=== PATIENT | male | born 1985 | race Caucasian/White ===

== ENCOUNTER 2024-04-12 10:27 | Inpatient (IN) | payer SELFPAY ==
[2024-04-12] MEDS ORDERED: ONDANSETRON 4 MG/2 ML VIAL ONE (10:55)
[2024-04-12] MEDS ORDERED: MORPHINE 4 MG/ML SYR ONE (10:55)
[2024-04-12] MEDS ORDERED: NA CHLORIDE 0.9% 1,000 ML ONE ×2 (10:56→12:22)
[2024-04-12 11:07] LABS: Absolute Basophils 0.1 K/uL (0-0.5); Absolute Eosinophils 0.1 K/uL (0-0.5); Absolute Lymphocytes (CBC) 1.6 K/uL (0.7-4.9); Absolute Monocytes 1.5 K/uL (0.1-1.3); Absolute Neutrophil 12.4 K/uL (1.8-8.0); Basophils % 0.3 % (0-1.3); Eosinophils % 0.4 % (0-4.4); Hemoglobin 15.5 g/dL (13.6-17.9); Lymphocytes % 10.1 % (15.3-44.8); MCH 30.9 pg (27.0-35.0); MCHC 33.6 g/dL (32.0-36.0); MCV 91.8 fL (80-100); MPV 7.6 fL (7.6-11.3); Monocytes % 9.3 % (3.3-12.3); Neutrophils % 79.9 % (41.7-73.7); Nucleated Red Blood Cells % 0.1 % (0-0); Platelets 238 thou/uL (152-406)
[2024-04-12 11:22] LABS: Albumin 2.8 g/dL (3.4-5.0); Albumin/Globulin Ratio 0.6 (1.1-1.8); Anion Gap 8.1 mEq/L (5.0-15.0); Potassium 4.1 mEq/L (3.5-5.1); Protein, Total 7.8 g/dL (6.4-8.2)
[2024-04-12] MEDS ORDERED: CIPROFLOXACIN 400mg IV 400 MG/200 ML BAG IV ONE (11:55)
[2024-04-12] MEDS ORDERED: METRONIDAZOLE 500mg IVPB 500 MG/100 ML BAG IV ONE (11:56)
[2024-04-12 11:57] LABS: Specific Gravity > 1.030 (1.005-1.030); Sqamous Epithelial None Seen /HPF (None Seen); Urine Bacteria None Seen /HPF (<20); Urine Bilirubin NEGATIVE (Negative); Urine Blood Trace (Negative); Urine Clarity Clear (Clear); Urine Color Light-Yellow (Yellow); Urine Culture Reflex Order NOT NEEDED; Urine Glucose NEGATIVE (Negative); Urine Ketones TRACE (Negative); Urine Microscopic Reflex YN ORDER UMIC; Urine Nitrite NEGATIVE (Negative); Urine Protein TRACE (Negative); Urine Urobilinogen Normal (Normal); Urine WBC <5 /HPF (<5); Urine pH 6.5 (5.0-7.0)
--- NOTE | 2024-04-12 12:14 | RAD REPORT ---
EXAM DESCRIPTION: CT - Abdomen Pelvis W Contrast - 04/12/2024 11:25 am CLINICAL HISTORY: ABD PAIN COMPARISON: No comparisons TECHNIQUE: Thin cut axial CT imaging of the abdomen and pelvis was performed following intravenous a dministration of iodinated contrast. Multiplanar reformats were generated and reviewed. All CT scans are performed using dose optimization technique as appropriate and may include automated exposure control or mA/KV adjustment according to patient size. FINDINGS: No suspicious findings in the lung bases. The liver shows diffuse parenchymal hypoattenuation, suggesting steatosis. Adrenal glands, spleen, an d pancreas show no suspicious findings. Gallbladder and biliary tree are also without suspicious find ing. Symmetric renal function is seen with no hydronephrosis or suspicious renal mass. At least 2 punctate radiodense foci along the left renal pyramids, not exceeding 3 mm. No dilated bowel loops. Focal bowel wall thickening along the proximal sigmoid colon. An inflamed div erticulum is present along the posterior wall, projecting inferiorly. Adjacent extraluminal gas with adjacent fat stranding. Extraluminal gas extends post stroke superiorly along the pelvic sidewall, fo r a distance of approximately 6.2 cm. Trace fluid along the left pelvic sidewall. No discrete collect ions. No free air, free fluid or inflammatory stranding. No hernia, mass or bulky lymphadenopathy. Th e urinary bladder is without significant finding. No suspicious bony findings. IMPRESSION: Sequelae of proximal sigmoid diverticulitis with perforation, and poor localization of t he extraluminal gas, which extends cranially along the left pelvic sidewall. No discrete fluid collec tions. Punctate foci along the tips of the left renal pyramids, may represent small nonobstructing calculi v ersus from the calcifications. Diffuse hepatic steatosis. The findings were communicated to Ga Vasquez on 04/12/2024 at 12:04 hours.
--- NOTE | 2024-04-12 12:19 | EDPHYS ---
Physician Documentation [facility] Name: Eddie Sandhu Age: 38 yrs Sex: Male : 1985 Arrival Date: 04/12/2024 Time: 10:27 Bed 14 Private MD: ED Physician Ga Vasquez HPI: 04/12 10:48 This 38 yrs old Male presents to ER via Ambulatory with complaints of slade Abdominal Injury - on 04/08/24, Fever. 10:48 Trauma demographics: County: The injury occurred in [place]. Mechanism of injury: slade Fall: the patient fell from a standing position. Associated injuries: The patient sustained injury to the abdomen, specifically the suprapubic area, right lower quadrant and left lower quadrant. The patient has not experienced similar symptoms in the past. Historical: - Allergies: 10:39 No Known Allergies; ko1 - Home Meds: 10:39 None [Active]; ko1 - PMHx: 10:39 None; ko1 - PSHx: 10:39 None; ko1 - Immunization history:: Adult Immunizations up to date. - Infectious Disease History:: Denies. - Social history:: Smoking status: Patient denies any tobacco usage or history of. ROS: 10:49 Constitutional: Negative for fever, chills, and weight loss, Eyes: Negative for injury, slade pain, redness, and discharge, ENT: Negative for injury, pain, and discharge, Neck: Negative for injury, pain, and swelling, Cardiovascular: Negative for chest pain, palpitations, and edema, Respiratory: Negative for shortness of breath, cough, wheezing, and pleuritic chest pain, Back: Negative for injury and pain, : Negative for injury, bleeding, discharge, and swelling, MS/Extremity: Negative for injury and deformity, Skin: Negative for injury, rash, and discoloration, Neuro: Negative for headache, weakness, numbness, tingling, and seizure, Psych: Negative for depression, anxiety, suicide ideation, homicidal ideation, and hallucinations, Allergy/Immunology: Negative for hives, rash, and allergies, Endocrine: Negative for neck swelling, polydipsia, polyuria, polyphagia, and marked weight changes, Hematologic/Lymphatic: Negative for swollen nodes, abnormal bleeding, and unusual bruising, 10:49 Abdomen/GI: Positive for abdominal pain, abdominal cramps, abdominal distension, of the suprapubic area, right lower quadrant and left lower quadrant, Exam: 10:49 Constitutional: This is a well developed, well nourished patient who is awake, alert, slade and in no acute distress. Head/Face: Normocephalic, atraumatic. Eyes: Pupils equal round and reactive to light, extra-ocular motions intact. Lids and lashes normal. Conjunctiva and sclera are non-icteric and not injected. Cornea within normal limits. Periorbital areas with no swelling, redness, or edema. ENT: Nares patent. No nasal discharge, no septal abnormalities noted. Tympanic membranes are normal and external auditory canals are clear. Oropharynx with no redness, swelling, or masses, exudates, or evidence of obstruction, uvula midline. Mucous membranes moist. Neck: Trachea midline, no thyromegaly or masses palpated, and no cervical lymphadenopathy. Supple, full range of motion without nuchal rigidity, or vertebral point tenderness. No Meningismus. Chest/axilla: Normal chest wall appearance and motion. Nontender with no deformity. No lesions are appreciated. Cardiovascular: Regular rate and rhythm with a normal S1 and S2. No gallops, murmurs, or rubs. Normal PMI, no JVD. No pulse deficits. Respiratory: Lungs have equal breath sounds bilaterally, clear to auscultation and percussion. No rales, rhonchi or wheezes noted. No increased work of breathing, no retractions or nasal flaring. Back: No spinal tenderness. No costovertebral tenderness. Full range of motion. Male : Normal genitalia with no discharge or lesions. Skin: Warm, dry with normal turgor. Normal color with no rashes, no lesions, and no evidence of cellulitis. MS/ Extremity: Pulses equal, no cyanosis. Neurovascular intact. Full, normal range of motion. Neuro: Awake and alert, GCS 15, oriented to person, place, time, and situation. Cranial nerves II-XII grossly intact. Motor strength 5/5 in all extremities. Sensory grossly intact. Cerebellar exam normal. Normal gait. Psych: Awake, alert, with orientation to person, place and time. Behavior, mood, and affect are within normal limits. 10:49 Abdomen/GI: Inspection: distension, that is moderate, Bowel sounds: normal, Palpation: moderate abdominal tenderness, in the suprapubic area and left lower quadrant, Liver: no appreciated palpable abnormalities, Hernia: not appreciated, Vital Signs: 10:33 BP 133 / 94; Pulse 124; Resp 18; Temp 99.2(O); Pulse Ox 100% on R/A; ko1 11:03 BP 132 / 93; Pulse 119; Resp 18 S; Pulse Ox 96% on R/A; Pain 3/10; kc6 11:52 BP 140 / 103; Pulse 111; Resp 18 S; Pulse Ox 97% on R/A; kc6 12:03 Pulse 109; kc6 12:13 BP 143 / 94; Pulse 98; Resp 19 S; Pulse Ox 99% on R/A; kc6 12:40 BP 147 / 95; Pulse 120; Resp 18 S; Temp 99.9(O); Pulse Ox 98% on R/A; kc6 15:10 BP 129 / 81; Pulse 98; Resp 18 S; Temp 99.8(O); Pulse Ox 94% on R/A; kc6 11:03 Pain Scale: Adult kc6 MDM: 10:35 Patient medically screened. [facility] 10:52 Differential diagnosis: intra-abdominal injury. Data reviewed: vital signs, nurses [facility] notes, lab test result(s), radiologic studies, CT scan. Consideration of Admission/Observation Escalation of care including admission/observation considered. I considered the following discharge prescriptions or medication management in the emergency department Medications were administered in the Emergency Department. See MAR. Independent interpretation of the following test(s) in the Emergency Department CT Scan: My interpretation is ct abd/pelvis. Test considered but Not performed: X-ray: no abd usg. Care significantly affected by the following chronic conditions: Obesity. 04/12 10:43 Order name: CBC with Diff; Complete Time: 11:45 [facility] 04/12 10:43 Order name: CMP; Complete Time: 11:32 slade 04/12 10:43 Order name: Lipase; Complete Time: 11:32 [facility] 04/12 10:43 Order name: Urinalysis w/ reflexes; Complete Time: 12:10 [facility] 04/12 13:21 Order name: Urinalysis w/ reflexes EDMS 04/12 10:43 Order name: CT Abd/Pelvis - IV Contrast Only [facility] 04/12 10:43 Order name: IV Saline Lock; Complete Time: 11:02 slade 04/12 10:43 Order name: Labs collected and sent; Complete Time: : sldae Administered Medications: 11:02 Drug: NS 0.9% IV 1000 ml IV at 1 bolus Per protocol; 1000 mL bolus Route: IV; Rate: 1 kc6 bolus; Site: right antecubital; 11:02 Drug: Ondansetron IVP 4 mg IVP once; over 2 minutes Route: IVP; Site: right antecubital;[facility] 11:53 Follow up: Response: No adverse reaction [facility] 11:02 Drug: morphine IVP or IV 4 mg IVP once over 4 mins Route: IVP; Infused Over: 4 mins; kc6 Site: right antecubital; 11:52 Follow up: Response: No adverse reaction; Pain is decreased; RASS: Alert and Calm (0) 6 12:03 Drug: Ciprofloxacin IVPB 400 mg 200 ml IVPB once over 60 mins Volume: 200 ml; Route: kc6 IVPB; Infused Over: 60 mins; Site: right antecubital; 13:36 Follow up: Response: No adverse reaction; IV Status: Completed infusion ap3 12:03 Drug: metroNIDAZOLE IVPB 500 mg 100 ml IVPB at 200 ml/hr once over 30 mins Volume: 100 kc6 ml; Route: IVPB; Rate: 200 ml/hr; Infused Over: 30 mins; Site: right antecubital; 13:35 Follow up: Response: No adverse reaction; IV Status: Completed infusion; IV Intake: ap3 100ml 12:40 Drug: Famotidine IVP 20 mg IVP once; dilute with 10 mL 0.9% NaCl; give over 2 minutes kc6 Route: IVP; Site: right antecubital; 13:35 Drug: Piperacillin-Tazobactam IVPB 3.375 grams IVPB once over 60 mins; (mix in NS 100 ap3 mL) Route: IVPB; Infused Over: 60 mins; Site: right antecubital; 13:35 Drug: NS 0.9% IV 1000 ml IV at 1 bolus Per protocol; 1000 mL bolus Route: IV; Rate: 1 ap3 bolus; Site: right antecubital; Disposition Summary: 04/12/24 12:18 Hospitalization Ordered Notes: Hospitalization Status: Inpatient Admission slade Location: Telemetry/[facility] (Inpatient) slade Condition: Fair slade Problem: new slade Symptoms: have improved slade Bed/Room Type: Standard slade Provider: Angelo Fields(04/12/24 12:21) slade Room Assignment: [facility](04/12/24 13:40) eb Diagnosis - Abdominal pain, Generalized slade - Fever, unspecified slade - perforated sigmoid diverticulitis with bleeding and without abscess slade Forms: - Medication Reconciliation Form slade - SBAR form slade - Leadership Thank You Letter slade Signatures: Dispatcher [employer] Ga David MD MD cha Prokisch, Amanda RN RN ap3 Ruma Hammer Kaitlyn, RN RN kc6 Kirstin Jackson RN RN ko1 Corrections: (The following items were deleted from the chart) 12:21 12:18 Edgardo Silva cha [facility] 13:40 12:18 slade eb
--- NOTE | 2024-04-12 12:19 | ER ---
Nurse's Notes [facility] Name: Eddie Sandhu Age: 38 yrs Sex: Male : 1985 Arrival Date: 04/12/2024 Time: 10:27 Bed 14 Private MD: Diagnosis: Abdominal pain, Generalized;Fever, unspecified;perforated sigmoid diverticulitis with bleeding and without abscess Presentation: 04/12 10:33 Chief complaint: Patient states: pulled something in lower abdomen playing pickleball, ko1 now having fever, alternating tylenol and motrin. Coronavirus screen: At this time, the client does not indicate any symptoms associated with coronavirus-19. Ebola Screen: No symptoms or risks identified at this time. Initial Sepsis Screen: Does the patient meet any 2 criteria? No. Patient's initial sepsis screen is negative. Does the patient have a suspected source of infection? No. Patient's initial sepsis screen is negative. Risk Assessment: Do you want to hurt yourself or someone else? Patient reports no desire to harm self or others. Onset of symptoms was April 12, 2024. 10:33 Method Of Arrival: Ambulatory ko1 10:33 Acuity: CHEO 3 ko1 Triage Assessment: 10:39 General: Appears in no apparent distress. Behavior is calm, cooperative, appropriate ko1 for age. Pain: Complains of pain in suprapubic area and left lower quadrant. Historical: - Allergies: 10:39 No Known Allergies; ko1 - Home Meds: 10:39 None [Active]; ko1 - PMHx: 10:39 None; ko1 - PSHx: 10:39 None; ko1 - Immunization history:: Adult Immunizations up to date. - Infectious Disease History:: Denies. - Social history:: Smoking status: Patient denies any tobacco usage or history of. Screenin:03 [facility] ED Fall Risk Assessment (Adult) History of falling in the last 3 months, kc6 including since admission No falls in past 3 months (0 pts) Confusion or Disorientation No (0 pts) Intoxicated or Sedated No (0 pts) Impaired Gait No (0 pts) Mobility Assist Device Used No (0 pt) Altered Elimination No (0 pt) Score/Fall Risk Level 0 - 2 = Low Risk. Abuse screen: Denies threats or abuse. Denies injuries from another. Nutritional screening: No deficits noted. Tuberculosis screening: No symptoms or risk factors identified. Assessment: 11:03 General: Appears in no apparent distress. comfortable, well groomed, well developed, kc6 Behavior is calm, cooperative, appropriate for age, Reports fever for 12-24 hours. Pain: Complains of pain in suprapubic area Pain does not radiate. Pain currently is 3 out of 10 on a pain scale. Quality of pain is described as aching, dull, Pain began 2-3 days ago. Is continuous. Neuro: Level of Consciousness is awake, alert, obeys commands, Oriented to person, place, time, situation, Appropriate for age Reports headache. Cardiovascular: Capillary refill < 3 seconds. Respiratory: Airway is patent Trachea midline Respiratory effort is even, unlabored, Respiratory pattern is regular, symmetrical. GI: Reports lower abdominal pain, nausea, Patient currently denies diarrhea, vomiting. : No signs and/or symptoms were reported regarding the genitourinary system. EENT: No signs and/or symptoms were reported regarding the EENT system. Derm: No signs and/or symptoms reported regarding the dermatologic system. Skin is intact, is healthy with good turgor, Skin is pink, warm \T\ dry. Musculoskeletal: No signs and/or symptoms reported regarding the musculoskeletal system. Circulation, motion, and sensation intact. Capillary refill < 3 seconds, Range of motion: intact in all extremities. 12:03 Reassessment: Patient appears in no apparent distress at this time. No changes from kc6 previously documented assessment. Patient and/or family updated on plan of care and expected duration. Pain level reassessed. Patient is alert, oriented x 3, equal unlabored respirations, skin warm/dry/pink. 13:03 Reassessment: Patient appears in no apparent distress at this time. No changes from kc6 previously documented assessment. Patient and/or family updated on plan of care and expected duration. Pain level reassessed. Patient is alert, oriented x 3, equal unlabored respirations, skin warm/dry/pink. 14:03 Reassessment: Patient appears in no apparent distress at this time. No changes from kc6 previously documented assessment. Patient and/or family updated on plan of care and expected duration. Pain level reassessed. Patient is alert, oriented x 3, equal unlabored respirations, skin warm/dry/pink. 15:03 Reassessment: Patient appears in no apparent distress at this time. No changes from kc6 previously documented assessment. Patient and/or family updated on plan of care and expected duration. Pain level reassessed. Patient is alert, oriented x 3, equal unlabored respirations, skin warm/dry/pink. Vital Signs: 10:33 BP 133 / 94; Pulse 124; Resp 18; Temp 99.2(O); Pulse Ox 100% on R/A; ko1 11:03 BP 132 / 93; Pulse 119; Resp 18 S; Pulse Ox 96% on R/A; Pain 3/10; kc6 11:52 BP 140 / 103; Pulse 111; Resp 18 S; Pulse Ox 97% on R/A; kc6 12:03 Pulse 109; kc6 12:13 BP 143 / 94; Pulse 98; Resp 19 S; Pulse Ox 99% on R/A; kc6 12:40 BP 147 / 95; Pulse 120; Resp 18 S; Temp 99.9(O); Pulse Ox 98% on R/A; kc6 15:10 BP 129 / 81; Pulse 98; Resp 18 S; Temp 99.8(O); Pulse Ox 94% on R/A; kc6 11:03 Pain Scale: Adult kc6 ED Course: 10:32 Patient arrived in ED. im 10:35 Ga Vasquez MD is Attending Physician. slade 10:39 Triage completed. ko1 10:39 Arm band placed on right wrist. Patient placed in an exam room, on a stretcher, on ko1 pulse oximetry, Patient notified of wait time. 10:40 Kirstin Jackson RN is Primary Nurse. ko1 11:02 Patient has correct armband on for positive identification. Bed in low position. Call [facility] light in reach. Side rails up X 1. Client placed on continuous cardiac and pulse oximetry monitoring. NIBP monitoring applied. Door closed. Noise minimized. Lights dimmed. Pillow given. Diet: Patient given ice chips. 11:02 Inserted saline lock: 20 gauge in right antecubital area, using aseptic technique. kc6 Blood collected. 11:25 CT Abd/Pelvis - IV Contrast Only In Process Unspecified. EDMS 12:13 Edgardo Silva MD is Hospitalizing Provider. slade 12:20 Angelo Fields MD is Hospitalizing Provider. slade 15:25 No provider procedures requiring assistance completed. Patient admitted, IV remains in kc6 place. Administered Medications: 11:02 Drug: NS 0.9% IV 1000 ml IV at 1 bolus Per protocol; 1000 mL bolus Route: IV; Rate: 1 kc6 bolus; Site: right antecubital; 11:02 Drug: Ondansetron IVP 4 mg IVP once; over 2 minutes Route: IVP; Site: right antecubital;kc6 11:53 Follow up: Response: No adverse reaction [facility] 11:02 Drug: morphine IVP or IV 4 mg IVP once over 4 mins Route: IVP; Infused Over: 4 mins; kc6 Site: right antecubital; 11:52 Follow up: Response: No adverse reaction; Pain is decreased; RASS: Alert and Calm (0) 6 12:03 Drug: Ciprofloxacin IVPB 400 mg 200 ml IVPB once over 60 mins Volume: 200 ml; Route: kc6 IVPB; Infused Over: 60 mins; Site: right antecubital; 13:36 Follow up: Response: No adverse reaction; IV Status: Completed infusion ap3 12:03 Drug: metroNIDAZOLE IVPB 500 mg 100 ml IVPB at 200 ml/hr once over 30 mins Volume: 100 kc6 ml; Route: IVPB; Rate: 200 ml/hr; Infused Over: 30 mins; Site: right antecubital; 13:35 Follow up: Response: No adverse reaction; IV Status: Completed infusion; IV Intake: ap3 100ml 12:40 Drug: Famotidine IVP 20 mg IVP once; dilute with 10 mL 0.9% NaCl; give over 2 minutes kc6 Route: IVP; Site: right antecubital; 13:35 Drug: Piperacillin-Tazobactam IVPB 3.375 grams IVPB once over 60 mins; (mix in NS 100 ap3 mL) Route: IVPB; Infused Over: 60 mins; Site: right antecubital; 13:35 Drug: NS 0.9% IV 1000 ml IV at 1 bolus Per protocol; 1000 mL bolus Route: IV; Rate: 1 ap3 bolus; Site: right antecubital; Medication: 15:25 VIS not applicable for this client. kc6 Intake: 13:35 IV: 100ml; Total: 100ml. ap3 Outcome: 12:18 Decision to Hospitalize by Provider. slade 15:25 Admitted to Med/surg accompanied by tech, via wheelchair, room 209, with chart, kc6 15:25 Condition: good 15:25 Instructed on the need for admit, 15:26 Patient left the ED. kc6 Signatures: Dispatcher [employer] Ga David MD MD cha Prokisch, Amanda RN RN onur3 Blank Rodríguez RN RN kc6 Kirstin Jackson RN RN ko1 Milena Wren Corrections: (The following items were deleted from the chart) 12:41 12:40 BP 147 / 5; Pulse 120bpm; Resp 18bpm; Spontaneous; Pulse Ox 98% RA; Temp 99.9F kc6 Oral; kc6
[2024-04-12] MEDS ORDERED: NA CHLORIDE 0.9% 100 ML ONE (12:21)
[2024-04-12] MEDS ORDERED: FAMOTIDINE 20 MG/2 ML VIAL IV ONE (12:21)
[2024-04-12] MEDS ORDERED: PIPERACIL/TAZO 3.375 GM VIAL IV ONE (12:21)
--- NOTE | 2024-04-12 12:50 | P.HP ---
Certification for Inpatient Patient admitted to: Inpatient With expected LOS: >2 Midnights Patient will require the following post-hospital care: None Practitioner: I am a practitioner with admitting privileges, knowledge of patient current condition, hospital course, and medical plan of care. Services: Services provided to patient in accordance with Admission requirements found in Title 42 Section 412.3 of the Code of Federal Regulations Patient History Date of Service: 04/12/24 Reason for admission: perforated sigmoid diverticulitis History of Present Illness: Eddie Sandhu is a 38 year old male with no significant Pmhx who presents to the ED with chief complaint of supraoubic and LLQ pain and a fever. He reports playing pickleball and felt like he pulled a muscle on Sunday 04/08. Symptoms progressed to fever for 3 days, bloating, and abdominal distention with LLQ pain. He reports starting to feel better being able to stand and walk easier today. He reports no trouble having a bowel movement. On examination he is comfortable in bed, left lower quadrant tender to palpation, no nausea, lung sounds clear, states he ate breakfast at 9 AM. Initial vitals BP 133 / 94; Pulse 124; Resp 18; Temp 99.2(O); Pulse Ox 100% on R/A Laboratory evaluation WBC 15.6, H/H 15.5/46, platelets 238 CT abd/pelvis reports "Sequelae of proximal sigmoid diverticulitis with perforation, and poor localization of the extraluminal gas, which extends cranially along the left pelvic sidewall. No discrete fluid collections. Punctate foci along the tips of the left renal pyramids, may represent small nonobstructing calculi versus from the calcifications. Diffuse hepatic steatosis." Eddie Sandhu will be admitted to hospitalist service for further management of perforated sigmoid diverticulitis, Dr. Silva consulted. Allergies No Known Allergies Allergy (Unverified 04/12/24 14:34) Review of Systems General: Fever Gastrointestinal: Nausea, Abdominal Pain, Distention Physical Examination - Physical Exam General: Alert, In no apparent distress, Oriented x3 HEENT: Atraumatic, Normocephalic, PERRLA Neck: Supple, 2+ carotid pulse no bruit Respiratory: Clear to auscultation bilaterally, Normal air movement Cardiovascular: Normal pulses, Regular rate/rhythm, Normal S1 S2 Capillary refill: <2 Seconds Gastrointestinal: Hypoactive, Soft and benign, Distended, Tenderness Musculoskeletal: No swelling Integumentary: No rashes Neurological: Normal speech, Normal tone - Studies Laboratory Data (last 24 hrs) 04/12/24 04/12/24 10:53 10:53 WBC 15.60 H Hgb 15.5 Hct 46.0 Plt Count 238 Sodium 137 Potassium 4.1 BUN 14 Creatinine 0.86 Glucose 129 H Total Bilirubin 1.0 AST 48 H ALT 81 H Alkaline Phosphatase 79 Lipase 23 Assessment and Plan - Plan Assessment and Plan Perforated sigmoid diverticulitis Leukocytosis Febrile -CT abd/pelvis reports "Sequelae of proximal sigmoid diverticulitis with perforation, and poor localization of the extraluminal gas, which extends cranially along the left pelvic sidewall. No discrete fluid collections. Punctate foci along the tips of the left renal pyramids, may represent small nonobstructing calculi versus from the calcifications. Diffuse hepatic steatosis." -WBC 15.6, fever >100 at home -Dr. Silva consulted -Ciprofloxacin , flagyl, and zosyn given in the ED -Zosyn continued on the floor -IVF -pain control and antiemetics -NPO Hepatic steatosis -incidental finding on CT abd/pelvis DVT ppx SCD, until surgery allows Full code LOS 4-5 days Discharge Plan: Home Plan to discharge in: 72 Hours - Advance Directives Does patient have a Living Will: No Does patient have a Durable POA for Healthcare: No
[2024-04-12] MEDS ORDERED: ONDANSETRON 4 MG/2 ML VIAL IV PRN (14:44)
[2024-04-12] MEDS: NA CHLORIDE 0.9% 1,000 ML IV SCH (16:12)
[2024-04-12] MEDS: ACETAMINOPHEN 325 MG TABLET PO PRN (16:45)
[2024-04-12] MEDS: MORPHINE 4 MG/ML SYR IV PRN (16:56)
[2024-04-12 18:04] VITALS: BMI 41.3
--- NOTE | 2024-04-12 18:13 | RAD REPORT ---
EXAM DESCRIPTION: USExtremity Venous [employer]04/12/2024 5:54 pm CLINICAL HISTORY: left leg pain COMPARISON: None FINDINGS: Left common femoral, superficial femoral, greater saphenous, popliteal and posterior tibi al veins are compressible and demonstrate augmentation. Doppler demonstrates good flow. Grayscale, color and spectral analysis performed on all vessels IMPRESSION: No evidence of deep venous thrombosis involving the left lower extremity.
[2024-04-12 19:06] LABS: Specific Gravity 1.015 (1.005-1.030); Sqamous Epithelial None Seen /HPF (None Seen); Urine Bacteria None Seen /HPF (<20); Urine Bilirubin NEGATIVE (Negative); Urine Blood Trace (Negative); Urine Clarity Clear (Clear); Urine Color Light-Yellow (Yellow); Urine Culture Reflex Order NOT NEEDED; Urine Glucose NEGATIVE (Negative); Urine Ketones 1+ (Negative); Urine Microscopic Reflex YN ORDER UMIC; Urine Nitrite NEGATIVE (Negative); Urine Protein TRACE (Negative); Urine RBC <5 /HPF (None Seen); Urine Urobilinogen Normal (Normal); Urine WBC None Seen /HPF (<5); Urine pH 5.5 (5.0-7.0)
[2024-04-12] MEDS ORDERED: METRONIDAZOLE 500mg IVPB 500 MG/100 ML BAG IV SCH (20:00)
[2024-04-12] MEDS ORDERED: ACETAMINOPHEN 650MG/RECT SUPP PR PRN (20:00)
[2024-04-12] MEDS ORDERED: CIPROFLOXACIN 400mg IV 400 MG/200 ML BAG IV SCH (20:00)
[2024-04-12] MEDS: KETOROLAC 30 MG/ML INJ IV ONE (20:15)
[2024-04-12] MEDS: PIPER TAZO 3.375 GM in NA CHLORIDE 0.9% 100 ML IV SCH (20:15)
[2024-04-12] MEDS ORDERED: PIPER TAZO 3.375 GM in NA CHLORIDE 0.9% 100 ML IV SCH (21:00)
[2024-04-13 03:14] LABS: Absolute Eosinophils 0.1 K/uL (0-0.5); Absolute Lymphocytes (CBC) 1.8 K/uL (0.7-4.9); Absolute Monocytes 1.3 K/uL (0.1-1.3); Basophils % 0.3 % (0-1.3); Eosinophils % 0.5 % (0-4.4); Hematocrit 40.9 % (39.6-49.0); Hemoglobin 13.8 g/dL (13.6-17.9); Lymphocytes % 16.5 % (15.3-44.8); MCH 31.3 pg (27.0-35.0); MCHC 33.8 g/dL (32.0-36.0); MCV 92.5 fL (80-100); MPV 7.4 fL (7.6-11.3); Monocytes % 11.4 % (3.3-12.3); Neutrophils % 71.3 % (41.7-73.7); Platelets 227 thou/uL (152-406); RBC Red Blood Cell Count 4.42 M/uL (4.33-5.43)
[2024-04-13 03:41] LABS: Magnesium 2.1 mg/dL (1.6-2.4); Phosphorus 4.2 mg/dL (2.5-4.9)
--- NOTE | 2024-04-13 09:40 | P.PN ---
Date of Service: 04/13/24 Subjective Awake and complaining of a migraine Able to start clear liquid diet ROS 10 point ROS as noted above, otherwise negative Physical Exam General: AAOx3, NAD HEENT: Atraumatic, Normocephalic, PERRLA Neck: Supple, 2+ carotid pulse no bruit Respiratory: Clear to auscultation bilaterally, symmetrical chest wall movement Cardiovascular: Normal pulses, RRR, Normal S1 S2, no murmur noted Capillary refill: <2 Seconds Gastrointestinal: Hypoactive, Soft and benign, Distended, Tenderness-improved Musculoskeletal: No swelling Integumentary: No rashes Neurological: Normal speech, Normal tone Vitals Reviewed Problem list Perforated sigmoid diverticulitis Leukocytosis Febrile Migraine headache Hepatic steatosis Assessment and Plan Perforated sigmoid diverticulitis Leukocytosis Febrile -CT abd/pelvis reports "Sequelae of proximal sigmoid diverticulitis with perforation, and poor localization of the extraluminal gas, which extends cranially along the left pelvic sidewall. No discrete fluid collections. Punctate foci along the tips of the left renal pyramids, may represent small nonobstructing calculi versus from the calcifications. Diffuse hepatic steatosis." -Initial WBC 15.6, fever >100 at home -WBC trended down to 11.2 -Dr. Silva-commend clear liquid diet and colonoscopy after discharge -Ciprofloxacin, flagyl, and zosyn given in the ED -Zosyn continued on the floor -IVF -pain control and antiemetics -Advance diet to clear liquid Migraine headache Imitrex x 1 Hepatic steatosis -incidental finding on CT abd/pelvis DVT ppx SCD, until surgery allows Full code LOS 4-5 days Discharge Plan: Home Plan to discharge in: 72 Hours
--- NOTE | 2024-04-13 11:48 | P.PN ---
Subjective Date of Service: 04/13/24 Chief Complaint: perforated sigmoid diverticulitis Subjective: Improving (Less pain, continues to pass gas, feels better with exception of headache) Physical Examination - Vital Signs Temperature: 97.6 F Blood Pressure: 113/69 Pulse: 77 Respirations: 16 Pulse Ox (%): 96 - Physical Exam General: Alert, In no apparent distress, Oriented x3, Cooperative HEENT: Mucous membr. moist/pink Respiratory: Clear to auscultation bilaterally, Normal air movement Cardiovascular: Regular rate/rhythm Gastrointestinal: Other (soft, mild suprapubic and LLQ TTP, no peritonitis, similar to prior exam) Assessment And Plan - Current Problems (Diagnosis) (1) Perforation of sigmoid colon due to diverticulitis Current Visit: Yes Status: Acute Plan: - Serial exams - start ice chips and clear liquids - continue Zosyn - continue medical mangement - I have reviewed the need for surgical follow up and colonoscopy in the future
[2024-04-13] MEDS: SUMATRIPTAN SUCC 6MG/0.5ML VIAL SQ ONE (12:27)
--- NOTE | 2024-04-13 13:39 | CON ---
Date of Consultation: 04/12/2024 Brief History Of Present Illness: The patient is a 38-year-old male with no significant past medical history, who presents to the ER with a chief complaint of abdominal pain, upper abdominal and suprap ubic and left lower quadrant area, associated with significant fever and chills over the past 4-5 day s prior to arrival. He states that he was playing pickle ball earlier when he felt what he thought w as a muscle pull on the left lower side on Monday, 04/08. His symptoms continued to progress over e next few days with significant pain, bloating, distention, and fever with chills. He had no nausea , vomiting. He continued to have bowel function, but he felt that there was fullness in the area abbe or to a bowel movement in the left lower side. He continued to have normal bowel function, however. He was brought to the hospital, had significant improvement of his symptoms after being given pain m edication, antibiotics. CT scan was performed as well. He currently feels well generally and is mov ing around with minimal symptoms at this time other than tenderness, but no pain at the time of exami nation. Past Medical History: Denies. Past Surgical History: Denies. Allergies: NO KNOWN DRUG ALLERGIES. Medications: None. Social History: He denies smoking. Denies recreational drug use. Drinks alcohol daily. Review of Systems: 10-point review of systems other than HPI, denies. Physical Examination: Vital Signs: At the time of my examination, his blood pressure is 114/72, heart rate was 108, respir atory rate 16, temperature 100.7, SpO2 is 98% on room air. General: He is awake, alert, and oriented. Psychiatric: He is appropriate and conversive. HEENT: He is normocephalic. His sclerae are anicteric. His mucous membranes are moist. His oropha rynx is clear. Neck: Supple without JVD. Chest: Normal expansion and excursion. Cardiovascular: Regular rate and rhythm. Pulmonary: Clear to auscultation bilaterally. Abdomen: Obese, but soft generally. He has tenderness in the suprapubic and left lower quadrant. T here is no rebound, no guarding, no focal peritonitis. There are no surgical scars evident on the ab domen. Extremities: No clubbing, cyanosis, or edema. Skin: Warm and dry. Laboratory Data: Revealed a white blood cell count of 15.6, hemoglobin 15.5, hematocrit 46.0, platel et count 238, neutrophils 79.9%. Sodium 137, potassium 4.1, chloride 106, carbon dioxide 27, BUN 14, creatinine 0.8, glucose is 129, calcium 9.5. Total bilirubin 1.0, AST 48, ALT 81, alkaline phosphat ase 79, lipase is 23. UA showed trace ketones, blood, and red blood cells. Total protein is only tr hany in the urine. He had imaging performed, which included a CT of the abdomen and pelvis, officiall y read as sequelae of proximal sigmoid diverticulitis with perforation and poor localization of the e xtraluminal gas, which extends cranially along the left pelvic sidewall. No discrete fluid collectio ns. Punctate foci along the tip of the left renal pyramids may represent small nonobstructing calcul us versus calcifications. Diffuse hepatic steatosis is noted as well. Assessment And Plan: This is a 38-year-old male who comes in with signs and symptoms of a perforated complicated diverticulitis. 1.IV fluid hydration. 2.Antibiotic coverage with Zosyn 3.375 q.6. 3.Serial abdominal exams. 4.Medical management. 5.I have explained the need for colonoscopy as an outpatient once the symptoms resolve. 6.I have explained to the patient and his family that due to his early agent complicated diverticuli tis, he should have a followup with the surgeon to discuss surgical options in the future as this is a significant episode of diverticulitis and given his young age, diverticulitis presentation, he is a t increased risk of needing surgical intervention at some point in his life for his diverticulitis af fected colon. I have explained the risks, benefits, and alternatives of the above stated plan. We w ill proceed with medical management and serial exams as described above. Thanks for this interesting consult. BENJI/BETTY Voice ID: [id number] Report ID: [id number]
[2024-04-13] MEDS: NICOTINE 14 MG/PAT TD SCH ×2 (21:20→21:28)
[2024-04-13 23:47] VITALS: O2SAT 99
[2024-04-14 03:25] LABS: Absolute Basophils 0.1 K/uL (0-0.5); Absolute Eosinophils 0.2 K/uL (0-0.5); Absolute Lymphocytes (CBC) 2.1 K/uL (0.7-4.9); Absolute Neutrophil 6.7 K/uL (1.8-8.0); Basophils % 0.7 % (0-1.3); Eosinophils % 2.2 % (0-4.4); Hematocrit 38.4 % (39.6-49.0); Hemoglobin 13.1 g/dL (13.6-17.9); Lymphocytes % 20.7 % (15.3-44.8); MCH 31.2 pg (27.0-35.0); MCHC 34.2 g/dL (32.0-36.0); MCV 91.1 fL (80-100); MPV 7.3 fL (7.6-11.3); Monocytes % 9.4 % (3.3-12.3); Platelets 242 thou/uL (152-406); RBC Red Blood Cell Count 4.21 M/uL (4.33-5.43); Red Cell Distribution Width 12.6 % (12.1-15.2)
[2024-04-14 03:40] LABS: Anion Gap 8.9 mEq/L (5.0-15.0); Phosphorus 3.1 mg/dL (2.5-4.9); Potassium 3.9 mEq/L (3.5-5.1)
[2024-04-14] MEDS: SUMATRIPTAN SUCC 6MG/0.5ML VIAL SQ ONE (05:11)
[2024-04-14] MEDS: POTASSIUM CL SA 10 MEQ TAB PO ONE (07:49)
[2024-04-14 12:49] VITALS: BP 150/87; TEMP 97.1
--- NOTE | 2024-04-14 13:08 | P.DS ---
Admission Date: 04/12/24 Discharge Date: 04/14/24 Disposition: ROUTINE DISCHARGE Discharge Condition: FAIR Reason for Admission: perforated sigmoid diverticulitis Brief History of Present Illness: Diagnosis Perforated sigmoid diverticulitis Leukocytosis Febrile Migraine headache Hepatic steatosis HPI 04/12/2024 Eddie Sandhu is a 38 year old male with no significant Pmhx who presents to the ED with chief complaint of supraoubic and LLQ pain and a fever. He reports playing pickleball and felt like he pulled a muscle on Sunday 04/08. Symptoms progressed to fever for 3 days, bloating, and abdominal distention with LLQ pain. He reports starting to feel better being able to stand and walk easier today. He reports no trouble having a bowel movement. On examination he is comfortable in bed, left lower quadrant tender to palpation, no nausea, lung sounds clear, states he ate breakfast at 9 AM. Initial vitals BP 133 / 94; Pulse 124; Resp 18; Temp 99.2(O); Pulse Ox 100% on R/A Laboratory evaluation WBC 15.6, H/H 15.5/46, platelets [address] CT abd/pelvis reports "Sequelae of proximal sigmoid diverticulitis with perforation, and poor localization of the extraluminal gas, which extends cranially along the left pelvic sidewall. No discrete fluid collections. Punctate foci along the tips of the left renal pyramids, may represent small nonobstructing calculi versus from the calcifications. Diffuse hepatic steatosis." Eddie Sandhu will be admitted to hospitalist service for further management of perforated sigmoid diverticulitis, Dr. Silva consulted. Hospital Course: Eddie Sandhu is a pleasant 38-year-old male with no significant past medical history, who was admitted to the [facility] on 04/12/26 for abdominal pain. Eddie Sandhu presented to the ED with chief complaint of left lower quadrant abdominal pain and fever. CT scan revealed perforated sigmoid colon diverticulitis. You have been treated with IV antibiotics, rested your bowel with nothing by mouth, advance to clear liquid diet and tolerated well, ambulating independently and without severe pain. Improvement has been seen during this hospital stay. Dr. Silva is in agreement with discharge. He has given instructions to advance to soft diet (ie, eggs and potatoes) with activity restriction to not lift anything heavier than a gallon of milk or greater than 8 pounds. Please Follow-up with Dr. Silva in 1 to 2 weeks for further evaluation and plans for colonoscopy. Two antibiotics have been called into the pharmacy at [facility] [place]. On 04/14/24, Eddie was seen on morning rounds and deemed medically stable for discharge. Eddie was discharged with instructions to schedule follow-up appointments with PCP and Dr. Silva. Eddie was provided prescriptions for Cipro and Flagyl. The patient was given the opportunity to ask questions and reported no further questions. Furthermore, all questions were answered to the best of my ability. A copy of this discharge summary will be sent to the above providers to facilitate continuity of care. Physical Exam General: AAOx3, no acute distress HEENT: Atraumatic, Normocephalic, PERRLA Neck: Supple, 2+ carotid pulse no bruit Respiratory: Clear to auscultation bilaterally, symmetrical chest wall movement Cardiovascular: Normal pulses, regular rate and rhythm, Normal S1 S2, no murmur noted Capillary refill: <2 Seconds Gastrointestinal: Normal active bowel sounds present, Soft and benign, Distended, Tenderness-improved Musculoskeletal: No swelling Integumentary: No rashes Neurological: Normal speech, Normal tone Vital Signs/Physical Exam: Temp Pulse Resp BP Pulse Ox 97.1 F 81 17 150/87 H 96 04/14/24 12:00 04/14/24 12:00 04/14/24 12:00 04/14/24 12:00 04/14/24 12:00 Laboratory Data at Discharge: WBC 10.10 thou/uL (4.3-10.9) 04/14/24 02:58 Hgb 13.1 g/dL (13.6-17.9) L 04/14/24 02:58 Hct 38.4 % (39.6-49.0) L 04/14/24 02:58 Plt Count 242 thou/uL (152-406) 04/14/24 02:58 Sodium 135 mEq/L (136-145) L 04/14/24 02:58 Potassium 3.9 mEq/L (3.5-5.1) 04/14/24 02:58 BUN 12 mg/dL (7-18) 04/14/24 02:58 Creatinine 0.89 mg/dL (0.70-1.30) 04/14/24 02:58 Glucose 104 mg/dL (74-106) 04/14/24 02:58 Phosphorus 3.1 mg/dL (2.5-4.9) 04/14/24 02:58 Magnesium 2.0 mg/dL (1.6-2.4) 04/14/24 02:58 Total Bilirubin 1.0 mg/dL (0.2-1.0) 04/12/24 10:53 AST 48 U/L (15-37) H 04/12/24 10:53 ALT 81 U/L (16-61) H 04/12/24 10:53 Alkaline Phosphatase 79 U/L (45-117) 04/12/24 10:53 Lipase 23 U/L (13-75) 04/12/24 10:53 Home Medications: Ciprofloxacin HCl [Cipro 500 MG Tablet] 500 mg PO BID 10 Days #20 tab 04/14/24 metroNIDAZOLE [Flagyl] 500 mg PO Q8H 10 Days #30 tab 04/14/24 New Medications: Ciprofloxacin HCl [Cipro 500 MG Tablet] 500 mg PO BID 10 Days #20 tab metroNIDAZOLE [Flagyl] 500 mg PO Q8H 10 Days #30 tab Physician Discharge Instructions: Eddie Sandhu presented to the ED with chief complaint of left lower quadrant abdominal pain and fever. CT scan revealed perforated sigmoid colon diverticulitis. You have been treated with IV antibiotics, rested your bowel with nothing by mouth, advance to clear liquid diet and tolerated well, ambulating independently and without severe pain. Improvement has been seen during this hospital stay. Dr. Silva is in agreement with discharge. He has given instructions to advance to soft diet (ie, eggs and potatoes) and activity restriction to not lift anything heavier than a gallon of milk or greater than 8 pounds. Please. Follow-up with Dr. Silva in 1 to 2 weeks for further evaluation and plans for colonoscopy.. Two antibiotics have been called into the pharmacy at [facility] [place]. 1. Please call and schedule a follow-up appointment with your PCP in 3-5 days - Please follow-up with your PCP for medication refills/adjustments 2. Please call and schedule a follow-up appointment with Dr. Silva in 1-2 weeks ([phone]) -please discuss colonoscopy in the near future. Dr. Silva will further arrange. 3. Continue soft diet diet 4. activity restrictions: do not lift anything heavier than a gallon of milk, >8 pounds 5. Return to the ED if symptoms worsen New medications Ciprofloxacin 500 mg p.o. twice a day x 10 days Flagyl 500 mg p.o. 3 times daily x 10 days Diet: soft Activity: No lifting more than 10 lbs Followup: NONE,NONE [Primary Care Provider] - Edgardo Silva MD [ACTIVE - CAN ADMIT] -
[2024-04-14] MEDS ORDERED: NICOTINE 14 MG/PAT TD SCH (21:19)
== END 2024-04-14 17:11 | disposition home or self-care (01) | DRG 378 ==
LOC: ER 10:27 → ERHOLD 13:15 → 2ND 15:15
PROVIDERS: ADMIT Hospitalist; ATTEND Hospitalist
DX: K57.33 Diverticulitis of large intestine without perforation or abscess with bleeding (principal); Z68.41 Body mass index [BMI] 40.0-44.9, adult; E66.9 Obesity, unspecified; K76.0 Fatty (change of) liver, not elsewhere classified; G43.909 Migraine, unspecified, not intractable, without status migrainosus
CPT/HCPCS: 36415; 74177; 80048; 80053; 81001; 83690; 83735; 84100; 85025; 93971; 96365; 96366; 96368; 96375; 99285; J0744; J2405; J2543; J3030; J7030; Q9967